=== PATIENT | male | born 1950 | race Caucasian/White ===

== ENCOUNTER 2016-05-29 12:21 | Outpatient (CLI) | payer MEDICARE | END 2016-05-29 12:22 | disposition home or self-care (01) | DX: E78.00 Pure hypercholesterolemia, unspecified (principal) ==

== ENCOUNTER 2016-08-21 08:53 | Outpatient (CLI) | payer MEDICARE | END 2016-08-21 08:54 | disposition home or self-care (01) | DX: E78.00 Pure hypercholesterolemia, unspecified (principal) ==

== ENCOUNTER 2016-10-02 13:34 | Outpatient (CLI) | payer MEDICARE | END 2016-10-02 13:35 | disposition critical access hospital (66) | LOC: EMS 13:34 | PROVIDERS: ATTEND Surgery | DX: R10.9 Unspecified abdominal pain (principal) | CPT/HCPCS: A0425; A0429 ==

== ENCOUNTER 2016-10-02 14:07 | Emergency (ER) | payer MEDICARE ==
[2016-10-02] MEDS ORDERED: KETOROLAC 60 MG/2 ML VIAL IVP STA (14:26)
--- NOTE | 2016-10-02 14:27 | ED Physician Documentation ---
PD HPI ABD PAIN - Stated complaint Stated Complaint: KIDNEY PX - Chief complaint Chief Complaint: Abd Pain - History obtained from History obtained from: Patient - History of Present Illness Timing - onset: Other (About a week and a half ago developed severe left flank pain, was seen at [facility] and a CT was done. Per his description he had a 5 mm proximal ureteral stone. He saw urologist a week ago (Dr Luevano, [facility]). He is on Flomax. He still having severe paroxysms of pain in the left flank. He is pain-free on arrival.) Review of Systems Ten Systems: 10 systems reviewed and negative Constitutional: reports: Reviewed and negative Throat: reports: Reviewed and negative Cardiac: reports: Reviewed and negative Respiratory: reports: Reviewed and negative PD PAST MEDICAL HISTORY - Past Medical History Past Medical History: Yes Cardiovascular: Hypertension - Allergies Allergies/Adverse Reactions: Allergies Allergy/AdvReac Type Severity Reaction Status Date / Time No Known Drug Allergies Allergy Verified 10/02/16 14:15 - Social History Does the pt smoke?: No Smoking Status: Never smoker - Family History Family history: reports: Non contributory PD ED PE NORMAL - Vitals Vital signs reviewed: Yes - General General: Alert and oriented X 3, No acute distress - Neck Neck: Supple, no meningeal sign, No bony TTP - Cardiac Cardiac: RRR, No murmur - Respiratory Respiratory: No respiratory distress, Clear bilaterally - Abdomen Abdomen: Soft, Non tender - Back Back: No CVA TTP, No spinal TTP - Derm Derm: Normal color, Warm and dry - Extremities Extremities: No edema, No calf tenderness / cord - Neuro Neuro: Alert and oriented X 3, Normal speech - Psych Psych: Normal mood, Normal affect Results - Vitals Vitals: Vital Signs - 24 hr 10/02/16 14:08 Temperature 37.5 C Heart Rate 79 Respiratory 18 Rate Blood Pressure 147/79 H O2 Saturation 99 Oxygen O2 Source Room air - Labs Labs: Laboratory Tests 10/02/16 10/02/16 10/02/16 14:15 14:40 14:40 WBC 9.6 RBC 4.37 L Hgb 13.6 L Hct 38.7 L MCV 88.5 MCH 31.0 MCHC 35.1 RDW 13.5 Plt Count 216 MPV 8.0 Neut # 7.8 H Lymph # 0.9 L [place] # 0.9 Eos # 0.1 Baso # 0.0 Absolute Nucleated RBC 0.00 Nucleated RBCs 0.0 Sodium 136 Potassium 3.9 Chloride 102 Carbon Dioxide 25 Anion Gap 9.0 BUN 18 Creatinine 1.2 Estimated GFR (MDRD) 60 L Glucose 139 H Calcium 9.1 Total Bilirubin 1.0 AST 30 ALT 24 Alkaline Phosphatase 69 Total Protein 7.0 Albumin 4.2 Globulin 2.8 Albumin/Globulin Ratio 1.5 Lipase 20 L Urine Color YELLOW Urine Clarity CLEAR Urine pH 7.0 Ur Specific [place] 1.010 Urine Protein NEGATIVE Urine Glucose (UA) NEGATIVE Urine Ketones NEGATIVE Urine Occult Blood LARGE H Urine Nitrite NEGATIVE Urine Bilirubin NEGATIVE Urine Urobilinogen 1 (NORMAL) Ur Leukocyte Esterase NEGATIVE Urine RBC TNTC H Urine WBC 0-3 Ur Squamous Epith Cells FEW Squamous Urine Bacteria Rare Ur Microscopic Review INDICATED Urine Culture Comments NOT INDICATED PD MEDICAL DECISION MAKING - ED course ED course: 66-year-old gentleman with ongoing renal colic after 10 days and unknown 5 mm stone. Case was discussed with [facility] transfer line and they would like him to go to urgent care at [facility] to be seen by his urologist. Departure - Departure Disposition: 02 Transfer Acute Care Hosp Clinical Impression: Renal colic Condition: Good Comments: Go directly to [facility] urgent care to be evaluated further.
[2016-10-02 14:29] LABS: BILIRUBIN,URINE NEGATIVE (NEGATIVE)
[2016-10-02 14:30] LABS: UA w/ MICROSCOPIC CHARGE YES
[2016-10-02] MEDS ORDERED: KETOROLAC 30 MG/ML VIAL ONE (14:43)
[2016-10-02 14:45] LABS: BASOPHILS % (AUTO) 0.4 %; EOSINOPHILS # (AUTO) 0.1 10^3/uL (0.0-0.7); EOSINOPHILS % (AUTO) 0.8 %; HCT - HEMATOCRIT 38.7 % (42.0-52.0); HGB - HEMOGLOBIN 13.6 g/dL (14.0-18.0); LYMPHOCYTES # (AUTO) 0.9 10^3/uL (1.5-3.5); MEAN CORPUSCULAR HGB CONC 35.1 g/dL (32.0-36.0); MEAN CORPUSCULAR VOLUME 88.5 fL (80.0-94.0); MONOCYTES # (AUTO) 0.9 10^3/uL (0.0-1.0); NEUTROPHILS # (AUTO) 7.8 10^3/uL (1.5-6.6); NEUTROPHILS % (AUTO) 80.8 %; RED BLOOD COUNT 4.37 10^6/uL (4.70-6.10); RED CELL DISTRIBUTION WIDTH 13.5 % (12.0-15.0); UNCORRECTED WHITE BLOOD COUNT 9.6 x10^3/uL; WHITE BLOOD COUNT 9.6 x10^3/uL (4.8-10.8)
[2016-10-02 14:57] LABS: UR CULTURE IF IND NOT INDICATED; WBC,URINE 0-3 /HPF (0-3)
[2016-10-02 15:00] LABS: ALBUMIN/GLOBULIN RATIO 1.5 (1.0-2.2); CALCIUM 9.1 mg/dL (8.5-10.3); CREATININE 1.2 mg/dL (0.6-1.2); POTASSIUM 3.9 mmol/L (3.5-5.0)
--- NOTE | 2016-10-02 15:23 | XRAY Preliminary Report ---
Exam: XR Abdomen 1 View IMPRESSION: Deep left pelvic calcifications indeterminate as regards to representing distal left uret eral stones and/or phleboliths. [facility] SITE ID: [id number]
--- NOTE | 2016-10-02 15:29 | XRAY Report ---
EXAM: ABDOMEN RADIOGRAPHY EXAM DATE: 10/02/2016 02:56 PM. CLINICAL HISTORY: Left side renal colic, previous CT per patient at [facility]? 5 mm. COMPARISON: Outside studies not available.. TECHNIQUE: 2 images, one supine view. FINDINGS: Bowel Gas Pattern: Within normal limits. No dilated loops. Other: Several 2 to 5 mm calcifications deep left pelvis. IMPRESSION: Deep left pelvic calcifications indeterminate as regards to representing distal left uret eral stones and/or phleboliths. [facility] Referring Provider Line: [phone] SITE ID: [id number]
[2016-10-02 17:02] VITALS: BP 134/76
== END 2016-10-02 17:06 | disposition short-term general hospital (02) ==
LOC: EDUNIT# → ED 14:07
DX: N23 Unspecified renal colic (principal); I10 Essential (primary) hypertension
CPT/HCPCS: 36415; 74000; 80053; 81001; 81003; 83690; 85025; 87086; 96374; 99283; 99284

== ENCOUNTER 2016-12-04 08:03 | Outpatient (CLI) | payer MEDICARE ==
[2016-12-04 12:55] LABS: ALBUMIN/GLOBULIN RATIO 1.5 (1.0-2.2); BILIRUBIN,TOTAL 0.6 mg/dL (0.2-1.0); BUN - BLOOD UREA NITROGEN 14 mg/dL (6-20); CALCIUM 9.3 mg/dL (8.5-10.3); CARBON DIOXIDE - CO2 29 mmol/L (21-32); CHLORIDE 106 mmol/L (101-111); CHOL/HDL RATIO 2.7 (<5.0); CHOLESTEROL 114 mg/dL; CREATININE 0.9 mg/dL (0.6-1.2); GFR - MDRD 84 (>89); GLUCOSE 109 mg/dL (70-100); HDL CHOLESTEROL 43 mg/dL; LDL/HDL RATIO 1.4 (<3.6); POTASSIUM 4.4 mmol/L (3.5-5.0); PSA FREE 0.365 ng/mL (0.16-2.81); PSA TOTAL 4.243 ng/mL (0.000-2.000); SODIUM 141 mmol/L (135-145); TOTAL PROTEIN 7.1 g/dL (6.7-8.2); TRIGLYCERIDES 47 mg/dL; VLDL CHOLESTEROL 9 mg/dL
== END 2016-12-04 08:04 | disposition home or self-care (01) ==
LOC: LAB.F 08:03
PROVIDERS: ATTEND Family Medicine
DX: E78.00 Pure hypercholesterolemia, unspecified (principal); E78.5 Hyperlipidemia, unspecified; R97.20 Elevated prostate specific antigen [PSA]
CPT/HCPCS: 36415; 80053; 80061; 84154

== ENCOUNTER 2017-04-24 08:56 | Outpatient (CLI) | payer MEDICARE ==
[2017-04-24 11:23] LABS: PSA FREE 0.4 ng/mL (0.16-2.81)
[2017-04-24 11:24] LABS: PSA TOTAL 4.18 ng/mL (0.000-2.000)
== END 2017-04-24 08:57 | disposition home or self-care (01) ==
LOC: LAB.F 08:56
PROVIDERS: ATTEND Family Medicine
DX: R97.20 Elevated prostate specific antigen [PSA] (principal)
CPT/HCPCS: 36415; 84154

== ENCOUNTER 2017-11-02 08:27 | Outpatient (CLI) | payer MEDICARE ==
[2017-11-02 18:18] LABS: ALBUMIN 4.3 g/dL (3.2-5.5); ALBUMIN/GLOBULIN RATIO 1.3 (1.0-2.2); ALKALINE PHOSPHATASE 77 IU/L (42-121); ALT ALANINE AMINOTRANSFERASE 26 IU/L (10-60); AST ASPARTATE AMINOTRANSFERASE 26 IU/L (10-42); BILIRUBIN,TOTAL 0.9 mg/dL (0.2-1.0); BUN - BLOOD UREA NITROGEN 18 mg/dL (6-20); CALCIUM 9.3 mg/dL (8.5-10.3); CARBON DIOXIDE - CO2 29 mmol/L (21-32); CHLORIDE 105 mmol/L (101-111); CHOLESTEROL 132 mg/dL; CREATININE 0.9 mg/dL (0.6-1.2); GFR - MDRD 84 (>89); GLUCOSE 102 mg/dL (70-100); HDL CHOLESTEROL 44 mg/dL; LDL CHOLESTEROL,CALCULATED 75 mg/dL; LDL/HDL RATIO 1.7 (<3.6); SODIUM 139 mmol/L (135-145); TOTAL PROTEIN 7.7 g/dL (6.7-8.2); VLDL CHOLESTEROL 13 mg/dL
[2017-11-02 19:27] LABS: PSA FREE 0.44 ng/mL (0.16-2.81)
[2017-11-02 19:28] LABS: PSA TOTAL 5.52 ng/mL (0.000-2.000)
== END 2017-11-02 08:28 | disposition home or self-care (01) ==
LOC: LAB.F 08:27
PROVIDERS: ATTEND Family Medicine
DX: E55.9 Vitamin D deficiency, unspecified (principal); Z86.73 Personal history of transient ischemic attack (TIA), and cerebral infarction without residual deficits; E78.00 Pure hypercholesterolemia, unspecified; I10 Essential (primary) hypertension; E78.5 Hyperlipidemia, unspecified; R97.20 Elevated prostate specific antigen [PSA]
CPT/HCPCS: 36415; 80053; 80061; 81599; 82306; 83721; 84154

== ENCOUNTER 2017-12-27 11:45 | Outpatient (CLI) | payer MEDICARE | END 2017-12-27 11:46 | disposition home or self-care (01) | LOC: LAB.R 11:45 | PROVIDERS: ATTEND Family Medicine | DX: N20.0 Calculus of kidney (principal); R97.20 Elevated prostate specific antigen [PSA] | CPT/HCPCS: 87086 ==

== ENCOUNTER 2018-01-01 08:00 | Outpatient (CLI) | payer MEDICARE | END 2018-01-01 08:01 | disposition home or self-care (01) | LOC: LAB.R 08:00 | PROVIDERS: ATTEND Family Medicine | DX: R19.7 Diarrhea, unspecified (principal) | CPT/HCPCS: 87493 ==

== ENCOUNTER 2018-03-04 09:44 | Outpatient (CLI) | payer MEDICARE ==
[2018-03-04 18:01] LABS: HGB - HEMOGLOBIN 14.6 g/dL (14.0-18.0); MEAN CORPUSCULAR HEMOGLOBIN 30.8 pg (27.0-31.0); MEAN CORPUSCULAR HGB CONC 33.6 g/dL (32.0-36.0); MEAN CORPUSCULAR VOLUME 91.6 fL (80.0-94.0); MEAN PLATELET VOLUME 8.4 fL (7.4-11.4); RED BLOOD COUNT 4.74 10^6/uL (4.70-6.10); WHITE BLOOD COUNT 4.8 x10^3/uL (4.8-10.8)
[2018-03-04 18:16] LABS: ALBUMIN 4.4 g/dL (3.2-5.5); ALBUMIN/GLOBULIN RATIO 1.5 (1.0-2.2); ALKALINE PHOSPHATASE 71 IU/L (42-121); ALT ALANINE AMINOTRANSFERASE 29 IU/L (10-60); AST ASPARTATE AMINOTRANSFERASE 28 IU/L (10-42); BUN - BLOOD UREA NITROGEN 16 mg/dL (6-20); CALCIUM 9.3 mg/dL (8.5-10.3); CARBON DIOXIDE - CO2 29 mmol/L (21-32); CHLORIDE 103 mmol/L (101-111); CHOLESTEROL 130 mg/dL; CREATININE 0.9 mg/dL (0.6-1.2); GFR - MDRD 84 (>89); GLUCOSE 98 mg/dL (70-100); HDL CHOLESTEROL 44 mg/dL; LDL CHOLESTEROL,CALCULATED 69 mg/dL; LDL/HDL RATIO 1.6 (<3.6); SODIUM 142 mmol/L (135-145); TOTAL PROTEIN 7.4 g/dL (6.7-8.2); VLDL CHOLESTEROL 17 mg/dL
== END 2018-03-04 09:45 | disposition home or self-care (01) ==
LOC: LAB.F 09:44
PROVIDERS: ATTEND Family Medicine
DX: Z00.00 Encounter for general adult medical examination without abnormal findings (principal); I10 Essential (primary) hypertension; E78.2 Mixed hyperlipidemia; C61 Malignant neoplasm of prostate
CPT/HCPCS: 36415; 80053; 80061; 83721; 85027

== ENCOUNTER 2023-01-05 08:00 | Outpatient (CLI) | payer MEDICARE | END 2023-01-05 23:59 | disposition home or self-care (01) | LOC: LAB.S 08:00 | PROVIDERS: ATTEND Physician Assistant | DX: R19.7 Diarrhea, unspecified (principal); R31.9 Hematuria, unspecified | CPT/HCPCS: 87086 ==

== ENCOUNTER 2023-11-28 10:19 | Outpatient (CLI) | payer MEDICARE ==
[2023-11-28 14:59] LABS: BASOPHILS % (AUTO) 0.2 %; EOSINOPHILS % (AUTO) 0.1 %; HGB - HEMOGLOBIN 12.8 g/dL (14.0-18.0); LYMPHOCYTES # (AUTO) 0.9 10^3/uL (1.5-3.5); LYMPHOCYTES % (AUTO) 10.7 %; MEAN CORPUSCULAR HEMOGLOBIN 30.6 pg (27.0-31.0); MEAN CORPUSCULAR VOLUME 95.7 fL (80.0-94.0); MEAN PLATELET VOLUME 9.7 fL (7.4-11.4); MONOCYTES # (AUTO) 0.5 10^3/uL (0.0-1.0); MONOCYTES % (AUTO) 6.3 %; NEUTROPHILS % (AUTO) 82.2 %; NRBC ABSOLUTE COUNT (AUTO) 0.02 x10^3/uL; NUCLEATED RED BLOOD CELLS AUTO 0.2 /100WBC; PLT - PLATELET COUNT 298 10^3/uL (130-450); RED BLOOD COUNT 4.18 10^6/uL (4.70-6.10); RED CELL DISTRIBUTION WIDTH 13.9 % (12.0-15.0); WHITE BLOOD COUNT 8.6 x10^3/uL (4.8-10.8)
[2023-11-28 15:26] LABS: ALBUMIN 4.2 g/dL (3.2-5.5); ALBUMIN/GLOBULIN RATIO 1.7 (1.0-2.2); BILIRUBIN,TOTAL 0.9 mg/dL (0.2-1.0); CALCIUM 9.3 mg/dL (8.5-10.3); CREATININE 0.9 mg/dL (0.6-1.3); POTASSIUM 4.4 mmol/L (3.5-4.5); TOTAL PROTEIN 6.7 g/dL (6.4-8.9)
== END 2023-11-28 10:20 | disposition home or self-care (01) ==
LOC: LAB.S 10:19
PROVIDERS: ATTEND Physician Assistant
DX: R19.7 Diarrhea, unspecified (principal)
CPT/HCPCS: 36415; 80053; 85025